=== PATIENT | male | born 1970 | race Caucasian/White ===

== ENCOUNTER 2019-02-06 22:35 | Emergency (ER) | payer OTHER, MEDICARE, MEDICAID ==
[2019-02-06 23:04] VITALS: BP 143/89; PULSE 126
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
== END 2019-02-07 00:57 | disposition home or self-care (01) ==
LOC: JD.ED 22:35
DX: I10 Essential (primary) hypertension (principal); F32.9 Major depressive disorder, single episode, unspecified; Z79.899 Other long term (current) drug therapy; V53.5XXA Driver of pick-up truck or van injured in collision with car, pick-up truck or van in traffic accident, initial encounter
CPT/HCPCS: 99283

== ENCOUNTER 2019-06-29 18:09 | Emergency (ER) | payer MEDICAID ==
[2019-06-29 18:35] VITALS: BP 175/116; PULSE 103
--- NOTE | 2019-06-29 19:31 | EDM.PDOC ---
<Dianne Lewis - Last Filed: 06/29/19 19:26> ED HPI GENERAL MEDICAL PROBLEM - General Chief Complaint: Cardiovascular Problem Stated Complaint: SWOLLEN ANKLES,LEGS AND FEET Time Seen by Provider: 06/29/19 18:59 Source of Information: Reports: Patient, Family (Mother), Significant Other History Limitations: Reports: No Limitations - History of Present Illness INITIAL COMMENTS - FREE TEXT/NARRATIVE: Patient is a pleasant 48-year-old gentleman with a history of hypertension, hyperlipidemia, and depression presents to the ED this evening for evaluation of bilateral swollen feet. Patient states he noticed his feet were swollen this morning when he was getting out of the shower. He does not know if his feet were swollen before this morning, as he states he does not typically pay attention. He denies having any previous episode of lower leg/feet edema. He denies any pain, numbness, tingling, or burning sensation in the feet with rest and ambulation. He does not think he was on his feet more than normal the past few days. His mother states he lives a pretty sedentary lifestyle since he does not work, he doesn't get up or out of the house very much. He has not changed his diet or increased his salt intake recently. He reports he drinks about half to a full gallon of plain water each day. He states he had a cardiac workup in the past six months at [facility] in [place]. He denies chest pain, shortness of breath, and recent illness. Onset: Today Duration: Hour(s): Location: Reports: Lower Extremity, Left, Lower Extremity, Right Quality: Reports: Other (swelling) - Related Data Allergies Allergy/AdvReac Type Severity Reaction Status Date / Time No Known Allergies Allergy Verified 06/29/19 18:35 Home Meds: Home Meds Aspirin 81 mg PO DAILY 06/29/19 [History] Chlorthalidone 25 mg PO DAILY #30 tab 06/29/19 [Rx] Sertraline [Zoloft] 100 mg PO DAILY 06/29/19 [History] atorvaSTATin Calcium [Lipitor] 20 mg PO DAILY 06/29/19 [History] lisinopriL [Lisinopril] 2.5 mg pe PO BID 06/29/19 [History] Past Medical History Cardiovascular History: Reports: Heart Murmur, High Cholesterol, Hypertension Respiratory History: Reports: Bronchitis, Recurrent Neurological History: Reports: Concussion, Migraines Psychiatric History: Reports: Depression Dermatologic History: Reports: Psoriasis - Infectious Disease History Infectious Disease History: Reports: Chicken Pox - Past Surgical History Head Surgeries/Procedures: Reports: None ED ROS GENERAL - Review of Systems Review Of Systems: See Below Constitutional: Reports: No Symptoms. Denies: Fever, Chills Respiratory: Reports: No Symptoms. Denies: Shortness of Breath Cardiovascular: Reports: Edema (bilateral feet). Denies: Chest Pain, Lightheadedness, Syncope GI/Abdominal: Reports: No Symptoms. Denies: Abdominal Pain, Diarrhea, Nausea, Vomiting Musculoskeletal: Reports: No Symptoms. Denies: Neck Pain, Back Pain, Muscle Pain Skin: Reports: No Symptoms. Denies: Rash, Erythema Neurological: Reports: No Symptoms. Denies: Dizziness, Headache, Numbness, Tingling Psychiatric: Reports: No Symptoms ED EXAM, GENERAL - Physical Exam Exam: See Below Exam Limited By: No Limitations General Appearance: Alert, WD/WN, No Apparent Distress Respiratory/Chest: No Respiratory Distress, Lungs Clear, Normal Breath Sounds, Chest Non-Tender Cardiovascular: Normal Peripheral Pulses, No Murmur, Tachycardia GI/Abdominal: Normal Bowel Sounds, Soft, Non-Tender, No Organomegaly, No Distention, No Mass Back Exam: Normal Inspection, Full Range of Motion, NT Extremities: Normal Inspection, Normal Range of Motion, Non-Tender, Normal Capillary Refill, Pedal Edema (bilateral- right is 1+ pitting and left is mild edema without pitting) Neurological: Alert, Oriented, Normal Cognition, No Motor/Sensory Deficits Psychiatric: Normal Affect, Normal Mood Skin Exam: Warm, Dry, Intact, Normal Color, No Rash Course - Vital Signs Last Recorded V/S: Last Vital Signs Temp 97.0 F 06/29/19 18:32 Pulse 103 H 06/29/19 18:32 Resp 16 06/29/19 18:32 BP 175/116 H 06/29/19 18:32 Pulse Ox 96 06/29/19 18:32 - Orders/Labs/Meds Orders: Active Orders 24 hr Category Date Time Status EKG Documentation Completion [RC] STAT Care 06/29/19 19:32 Ordered Chest 2V [CR] Stat Exams 06/29/19 19:32 Ordered Labs: Laboratory Tests 06/29/19 06/29/19 06/29/19 Range/Units 19:52 19:52 19:52 WBC 9.29 H (4.23-9.07) K/mm3 RBC 5.64 (4.63-6.08) M/mm3 Hgb 16.3 (13.7-17.5) gm/dl Hct 48.5 (40.1-51.0) % MCV 86.0 (79.0-92.2) fl MCH 28.9 (25.7-32.2) pg MCHC 33.6 (32.2-35.5) g/dl RDW Std Deviation 41.4 (35.1-43.9) fL Plt Count 261 (163-337) K/mm3 MPV 9.6 (9.4-12.3) fl Neutrophils % (Manual) 66 H (40-60) % Band Neutrophils % 1 (0-10) % Lymphocytes % (Manual) 24 (20-40) % Atypical Lymphs % 0 % Monocytes % (Manual) 6 (2-10) % Eosinophils % (Manual) 2 (0.8-7.0) % Basophils % (Manual) 1 (0.2-1.2) Platelet Estimate Adequate RBC Morph Comment Normal Sodium 143 (136-145) mEq/L Potassium 3.7 (3.5-5.1) mEq/L Chloride 103 (98-107) mEq/L Carbon Dioxide 31 (21-32) mEq/L Anion Gap 12.7 (5-15) BUN 12 (7-18) mg/dL Creatinine 1.0 (0.7-1.3) mg/dL Est Cr Clr Drug Dosing TNP Estimated GFR (MDRD) > 60 (>60) mL/min BUN/Creatinine Ratio 12.0 L (14-18) Glucose 112 H (74-106) mg/dL Calcium 8.9 (8.5-10.1) mg/dL Total Bilirubin 0.4 (0.2-1.0) mg/dL AST 66 H (15-37) U/L ALT 121 H (16-63) U/L Alkaline Phosphatase 63 (46-116) U/L Troponin I < 0.017 (0.00-0.056) ng/mL NT-Pro-B Natriuret Pep 166 H (0-125) pg/mL Total Protein 7.5 (6.4-8.2) g/dl Albumin 3.9 (3.4-5.0) g/dl Globulin 3.6 gm/dL Albumin/Globulin Ratio 1.1 (1-2) Departure - Departure Disposition: Home, Self-Care 01 Clinical Impression: Mild peripheral edema Prescriptions: Chlorthalidone 25 mg PO DAILY #30 tab Instructions: Edema, [id number] Referrals: Anuja Long PA-C [Primary Care Provider] - Forms: ED Department Discharge Additional Instructions: You were evaluated in the ER today regarding the swelling in your bilateral legs. Your laboratory evaluation did not uncover any sort of remarkable defects. EKG was also within normal limits, and your chest x-ray was also within normal limits. You will be started on a medicine called chlorthalidone, please take as prescribed. This was electronic prescribed to the [facility] [email or web address]. You will have to pick this up tomorrow and start taking as directed. You were given a 30-day supply of this. Recommend you call your primary care provider, Anuja Long, and try to get your appointment pushed up for an ER follow-up regarding your blood pressure medications. Please return to the ER at any time if your symptoms change or worsen. Sepsis Event Note - Evaluation Sepsis Screening Result: No Definite Risk - Focused Exam Vital Signs: Vital Signs Temp Pulse Resp BP Pulse Ox 06/29/19 18:32 97.0 F 103 H 16 175/116 H 96 Date Exam was Performed: 06/29/19 Time Exam was Performed: 19:26 - My Orders Last 24 Hours: My Active Orders 06/29/19 19:32 EKG Documentation Completion [RC] STAT Chest 2V [CR] Stat - Assessment/Plan Last 24 Hours: My Active Orders 06/29/19 19:32 EKG Documentation Completion [RC] STAT Chest 2V [CR] Stat <Elizabeth Lux - Last Filed: 06/29/19 20:45> EKG INTERPRETATION EKG Date: 06/29/19 Time: 19:44 Rhythm: NSR Rate (Beats/Min): 94 [place]: Normal P-Wave: Present QRS: Normal ST-T: Normal (Diffuse early repolarization) QT: Normal Comparison: NA - No Prior EKG EKG Interpretation Comments: EKG shows no discernible signs of acute ischemia. Reviewed by myself and Dr. Gonzalez. Course - Orders/Labs/Meds Labs: Laboratory Tests 06/29/19 06/29/19 06/29/19 Range/Units 19:52 19:52 19:52 WBC 9.29 H (4.23-9.07) K/mm3 RBC 5.64 (4.63-6.08) M/mm3 Hgb 16.3 (13.7-17.5) gm/dl Hct 48.5 (40.1-51.0) % MCV 86.0 (79.0-92.2) fl MCH 28.9 (25.7-32.2) pg MCHC 33.6 (32.2-35.5) g/dl RDW Std Deviation 41.4 (35.1-43.9) fL Plt Count 261 (163-337) K/mm3 MPV 9.6 (9.4-12.3) fl Neutrophils % (Manual) 66 H (40-60) % Band Neutrophils % 1 (0-10) % Lymphocytes % (Manual) 24 (20-40) % Atypical Lymphs % 0 % Monocytes % (Manual) 6 (2-10) % Eosinophils % (Manual) 2 (0.8-7.0) % Basophils % (Manual) 1 (0.2-1.2) Platelet Estimate Adequate RBC Morph Comment Normal Sodium 143 (136-145) mEq/L Potassium 3.7 (3.5-5.1) mEq/L Chloride 103 (98-107) mEq/L Carbon Dioxide 31 (21-32) mEq/L Anion Gap 12.7 (5-15) BUN 12 (7-18) mg/dL Creatinine 1.0 (0.7-1.3) mg/dL Est Cr Clr Drug Dosing TNP Estimated GFR (MDRD) > 60 (>60) mL/min BUN/Creatinine Ratio 12.0 L (14-18) Glucose 112 H (74-106) mg/dL Calcium 8.9 (8.5-10.1) mg/dL Total Bilirubin 0.4 (0.2-1.0) mg/dL AST 66 H (15-37) U/L ALT 121 H (16-63) U/L Alkaline Phosphatase 63 (46-116) U/L Troponin I < 0.017 (0.00-0.056) ng/mL NT-Pro-B Natriuret Pep 166 H (0-125) pg/mL Total Protein 7.5 (6.4-8.2) g/dl Albumin 3.9 (3.4-5.0) g/dl Globulin 3.6 gm/dL Albumin/Globulin Ratio 1.1 (1-2) - Re-Assessments/Exams Free Text/Narrative Re-Assessment/Exam: 06/29/19 20:10 I have read and reviewed the student's HPI and examined the patient and agree with Miguel Lewis NP student. 06/29/19 20:42 Laboratory evaluation is back, everything is pretty unremarkable. I will discharge the patient home with a chlorthalidone prescription, and have him increase his lisinopril from 2.5 mg BID to 5mg BID, and have him follow-up with his regular provider a little sooner than he is already scheduled on July 19. Departure - Departure Time of Disposition: 20:43 Condition: Fair Sepsis Event Note - Focused Exam Date Exam was Performed: 06/29/19 Time Exam was Performed: 20:42
--- NOTE | 2019-06-30 09:56 | CR ---
Chest: PA and lateral views of the chest were obtained. Comparison: No previous chest x-ray. Heart size and mediastinum are normal. Lungs are clear with no acute parenchymal change. Bony structures appear within normal limits for the patient's age. Impression: 1. Nothing acute is seen on two-view chest x-ray. Diagnostic code #1 Study was dictated in [place] Standard Time
== END 2019-06-29 21:00 | disposition home or self-care (01) ==
LOC: JD.ED 18:09 → MERGE 18:09 → JD.ED 21:00
DX: R60.0 Localized edema (principal); I10 Essential (primary) hypertension; E78.00 Pure hypercholesterolemia, unspecified; F32.9 Major depressive disorder, single episode, unspecified; Z79.82 Long term (current) use of aspirin; Z79.899 Other long term (current) drug therapy
CPT/HCPCS: 36415; 71046; 71046-26; 80053; 83880; 84484; 85007; 85027; 93005; 93010; 99283; 99284-25

== ENCOUNTER 2020-02-26 20:10 | Emergency (ER) | payer MEDICARE, MEDICAID ==
[2020-02-26 20:19] VITALS: BP 173/109; PULSE 105
[2020-02-26] MEDS ORDERED: Sodium Chloride 0.9% 10 ML Syringe FLUSH PRN (20:26)
[2020-02-26] MEDS ORDERED: Ondansetron 4 MG/2 ML SDV IVPUSH ONE (20:26)
--- NOTE | 2020-02-26 20:33 | EDM.PDOC ---
ED HPI GENERAL MEDICAL PROBLEM - General Chief Complaint: General Stated Complaint: [facility] Time Seen by Provider: 02/26/20 20:18 Source of Information: Reports: Patient History Limitations: Reports: No Limitations - History of Present Illness INITIAL COMMENTS - FREE TEXT/NARRATIVE: The patient presents by EMS for headache, nausea and vomiting. He had a brain tumor removed with shunt placement on 01/15/20. He was released from [facility] in [place] on 02/22/20. He has been having headaches, nausea and vomiting. He also had a temp of 101.4. He had a temp of 99.1 here. He has no headache now and he feels better. He has no cough, congestion, runny nose, chest pain, shortness of breath, or abdominal pain. He has no new neurologic symptoms like numbness or weakness. Onset: Gradual Duration: Day(s): Location: Reports: Head Quality: Reports: Ache Severity: Moderate (Better now) Improves with: Reports: None Worsens with: Reports: None Associated Symptoms: Reports: Fever/Chills, Headaches, Nausea/Vomiting. Denies: Chest Pain, Cough, Shortness of Breath Headache Pain Score (Numeric/FACES): 6 - Related Data Allergies Allergy/AdvReac Type Severity Reaction Status Date / Time No Known Allergies Allergy Verified 02/26/20 20:19 Home Meds: Home Meds Metoprolol Tartrate [Lopressor] 50 mg PO BID 03/15/16 [History] Sertraline. 03/15/16 [History] Aspirin 81 mg PO DAILY 06/29/19 [History] Chlorthalidone 25 mg PO DAILY #30 tab 06/29/19 [Rx] Sertraline [Zoloft] 100 mg PO DAILY 06/29/19 [History] atorvaSTATin Calcium [Lipitor] 20 mg PO DAILY 06/29/19 [History] lisinopriL [Lisinopril] 2.5 mg pe PO BID 06/29/19 [History] Past Medical History - Past Health History Medical/Surgical History: Denies Medical/Surgical History Cardiovascular History: Reports: High Cholesterol, Heart Murmur, Hypertension Respiratory History: Reports: Bronchitis, Recurrent Genitourinary History: Reports: Urinary Incontinence Neurological History: Reports: Concussion, Migraines, Other (See Below) Other Neuro History: brain tumor Psychiatric History: Reports: Depression Endocrine/Metabolic History: Reports: Obesity/BMI 30+ Dermatologic History: Reports: Psoriasis - Infectious Disease History Infectious Disease History: Reports: Chicken Pox - Past Surgical History HEENT Surgical History: Reports: Oral Surgery Neurological Surgical History: Reports: Other (See Below) Other Neurological Surgeries/Procedures: brain tumor removed and shunt placed 02/15/2020 Social & Family History - Family History Family Medical History: Noncontributory - Tobacco Use Smoking Status *Q: Never Smoker Second Hand Smoke Exposure: No - Caffeine Use Caffeine Use: Reports: None - Recreational Drug Use Recreational Drug Use: No - Living Situation & Occupation Living situation: Reports: (), with Significant Other (Girlfriend) Occupation: Unemployed ED ROS GENERAL - Review of Systems Review Of Systems: See Below Constitutional: Reports: Fever HEENT: Reports: No Symptoms Respiratory: Reports: No Symptoms Cardiovascular: Reports: No Symptoms Endocrine: Reports: No Symptoms GI/Abdominal: Reports: Nausea, Vomiting. Denies: Abdominal Pain : Reports: No Symptoms ED EXAM, GENERAL - Physical Exam Exam: See Below Exam Limited By: No Limitations General Appearance: Alert, No Apparent Distress Ears: Normal External Exam Nose: Normal Inspection Head: Other (Surgical incisions with sutures to the right temporal region and left parietal regions. No erythema, edema or drainage noted.) Neck: Normal Inspection Respiratory/Chest: No Respiratory Distress, Lungs Clear, Normal Breath Sounds Cardiovascular: Regular Rate, Rhythm, No Edema, No Murmur GI/Abdominal: Soft, Non-Tender, No Organomegaly, No Mass Back Exam: Normal Inspection Extremities: Normal Inspection Neurological: Alert, Oriented, No Motor/Sensory Deficits Course - Vital Signs Last Recorded V/S: Last Vital Signs Temp 99.4 F 02/26/20 20:15 Pulse 105 H 02/26/20 20:15 Resp 19 02/26/20 20:15 BP 173/109 H 02/26/20 20:15 Pulse Ox 93 L 02/26/20 20:15 - Orders/Labs/Meds Orders: Active Orders 24 hr Category Date Time Status Cardiac Monitoring [RC] . DIRECTED Care 02/26/20 20:26 Active Peripheral IV Care [RC] . DIRECTED Care 02/26/20 20:27 Active CXR [Chest 1V Frontal] [CR] Stat Exams 02/26/20 22:47 Ordered Head wo Cont [CT] Stat Exams 02/26/20 20:27 Taken CULTURE BLOOD [BC] Stat Lab 02/26/20 20:45 Received CULTURE BLOOD [BC] Stat Lab 02/26/20 21:00 Received Sodium Chloride 0.9% [Saline Flush] Med 02/26/20 20:26 Active 10 ml FLUSH ASDIRECTED PRN Blood Culture x2 Reflex Set [OM.PC] Stat Oth 02/26/20 20:28 Ordered ED Antiemetic Medication Reflex [OM.PC] Stat Oth 02/26/20 20:26 Ordered Peripheral IV Insertion Adult [OM.PC] Stat Oth 02/26/20 20:26 Ordered Medication Orders Sodium Chloride (Saline Flush) 10 ml FLUSH ASDIRECTED PRN PRN Reason: Keep Vein Open Last Admin: 02/26/20 20:35 Dose: 10 ml Documented by: SHARYN Labs: Laboratory Tests 02/26/20 02/26/20 02/26/20 Range/Units 20:45 20:45 20:45 WBC 12.11 H (4.23-9.07) K/mm3 RBC 4.89 (4.63-6.08) M/mm3 Hgb 14.1 D (13.7-17.5) gm/dl Hct 43.1 (40.1-51.0) % MCV 88.1 (79.0-92.2) fl MCH 28.8 (25.7-32.2) pg MCHC 32.7 (32.2-35.5) g/dl RDW Std Deviation 43.7 (35.1-43.9) fL Plt Count 314 (163-337) K/mm3 MPV 9.9 (9.4-12.3) fl Neut % (Auto) 81.3 H (34.0-67.9) % Lymph % (Auto) 9.2 L (21.8-53.1) % Hubbard % (Auto) 9.1 (5.3-12.2) % Eos % (Auto) 0 L (0.8-7.0) Baso % (Auto) 0.2 (0.1-1.2) % Neut # (Auto) 9.85 H (1.78-5.38) K/mm3 Lymph # (Auto) 1.11 L (1.32-3.57) K/mm3 Hubbard # (Auto) 1.10 H (0.30-0.82) K/mm3 Eos # (Auto) 0.00 L (0.04-0.54) K/mm3 Baso # (Auto) 0.02 (0.01-0.08) K/mm3 Manual Slide Review Abnormal smear Sodium 137 (136-145) mEq/L Potassium 4.0 (3.5-5.1) mEq/L Chloride 100 (98-107) mEq/L Carbon Dioxide 30 (21-32) mEq/L Anion Gap 11.0 (5-15) BUN 8 (7-18) mg/dL Creatinine 1.0 (0.7-1.3) mg/dL Est Cr Clr Drug Dosing 92.26 mL/min Estimated GFR (MDRD) > 60 (>60) mL/min BUN/Creatinine Ratio 8.0 L (14-18) Glucose 129 H (74-106) mg/dL Lactic Acid 1.2 (0.4-2.0) mmol/L Calcium 9.1 (8.5-10.1) mg/dL Total Bilirubin 0.7 (0.2-1.0) mg/dL AST 12 L (15-37) U/L ALT 19 (16-63) U/L Alkaline Phosphatase 73 (46-116) U/L C-Reactive Protein 10.1 H* (<1.0) mg/dL Total Protein 7.2 (6.4-8.2) g/dl Albumin 3.4 (3.4-5.0) g/dl Globulin 3.8 gm/dL Albumin/Globulin Ratio 0.9 L (1-2) Urine Color (Yellow) Urine Appearance (Clear) Urine pH (5.0-8.0) Ur Specific Antler (1.005-1.030) Urine Protein (Negative) Urine Glucose (UA) (Negative) Urine Ketones (Negative) Urine Occult Blood (Negative) Urine Nitrite (Negative) Urine Bilirubin (Negative) Urine Urobilinogen (0.2-1.0) Ur Leukocyte Esterase (Negative) Urine RBC (0-5) /hpf Urine WBC (0-5) /hpf Ur Squamous Epith Cells (0-5) /hpf Urine Bacteria (FEW) /hpf Urine Mucus (FEW) /hpf SARS-CoV-2 RNA (BEHZAD) (NEGATIVE) 02/26/20 02/26/20 Range/Units 21:08 21:25 WBC (4.23-9.07) K/mm3 RBC (4.63-6.08) M/mm3 Hgb (13.7-17.5) gm/dl Hct (40.1-51.0) % MCV (79.0-92.2) fl MCH (25.7-32.2) pg MCHC (32.2-35.5) g/dl RDW Std Deviation (35.1-43.9) fL Plt Count (163-337) K/mm3 MPV (9.4-12.3) fl Neut % (Auto) (34.0-67.9) % Lymph % (Auto) (21.8-53.1) % Hubbard % (Auto) (5.3-12.2) % Eos % (Auto) (0.8-7.0) Baso % (Auto) (0.1-1.2) % Neut # (Auto) (1.78-5.38) K/mm3 Lymph # (Auto) (1.32-3.57) K/mm3 Hubbard # (Auto) (0.30-0.82) K/mm3 Eos # (Auto) (0.04-0.54) K/mm3 Baso # (Auto) (0.01-0.08) K/mm3 Manual Slide Review Sodium (136-145) mEq/L Potassium (3.5-5.1) mEq/L Chloride (98-107) mEq/L Carbon Dioxide (21-32) mEq/L Anion Gap (5-15) BUN (7-18) mg/dL Creatinine (0.7-1.3) mg/dL Est Cr Clr Drug Dosing mL/min Estimated GFR (MDRD) (>60) mL/min BUN/Creatinine Ratio (14-18) Glucose (74-106) mg/dL Lactic Acid (0.4-2.0) mmol/L Calcium (8.5-10.1) mg/dL Total Bilirubin (0.2-1.0) mg/dL AST (15-37) U/L ALT (16-63) U/L Alkaline Phosphatase (46-116) U/L C-Reactive Protein (<1.0) mg/dL Total Protein (6.4-8.2) g/dl Albumin (3.4-5.0) g/dl Globulin gm/dL Albumin/Globulin Ratio (1-2) Urine Color Yellow (Yellow) Urine Appearance Clear (Clear) Urine pH 8.0 (5.0-8.0) Ur Specific Antler 1.020 (1.005-1.030) Urine Protein 1+ H (Negative) Urine Glucose (UA) Negative (Negative) Urine Ketones Negative (Negative) Urine Occult Blood Trace-intact H (Negative) Urine Nitrite Negative (Negative) Urine Bilirubin Negative (Negative) Urine Urobilinogen 1.0 (0.2-1.0) Ur Leukocyte Esterase Negative (Negative) Urine RBC 0-5 (0-5) /hpf Urine WBC 0-5 (0-5) /hpf Ur Squamous Epith Cells 0-5 (0-5) /hpf Urine Bacteria Not seen (FEW) /hpf Urine Mucus Few (FEW) /hpf SARS-CoV-2 RNA (BEHZAD) Negative (NEGATIVE) Meds: Medications Generic Name Dose Route Start Last Admin Trade Name Freq PRN Reason Stop Dose Admin Sodium Chloride 10 ml 02/26/20 20:26 02/26/20 20:35 Saline Flush FLUSH 10 ml ASDIRECTED PRN Administration Keep Vein Open Discontinued Medications Generic Name Dose Route Start Last Admin Trade Name Freq PRN Reason Stop Dose Admin Ceftriaxone Sodium 2 gm/ 100 mls @ 200 mls/hr 02/26/20 21:49 02/26/20 21:57 Sodium Chloride IV 02/26/20 22:18 200 mls/hr ONETIME ONE Administration Ondansetron HCl 4 mg 02/26/20 20:26 02/26/20 20:35 Zofran IVPUSH 02/26/20 20:27 4 mg ONETIME ONE Administration - Re-Assessments/Exams Free Text/Narrative Re-Assessment/Exam: 02/26/20 20:34 I ordered an IV saline lock, zofran 4mg IV, labs, blood cultures, lactic acid, COVID [address] of his head. 02/26/20 23:00 His WBC was elevated at 12.11. His CRP is elevated at 10.1. His UA shows no UTI. His COVID [address] shows craniotomy defect in the right mastoid region with underlying mastoidectmoy and resection of the posterior right temporal bone structures. In the rightward cerebellum there is a masslike rounded focus in the region of the brachium pontis measuring to 3.4cm in size with local mass effect. The mass effect is typical for the resection bed and raises concern for either residual/recurrent neoplasm, or possibly brain abscess. Recommend further assessment with pre and post contrast MRI of the brain. Comparison to prior study would be helpful if any can be mad available. There is partial effacement of the 4th ventricle which does not appear obstructed. Nondilated ventricular system. Left frontal ventriculostomy catheter in place with its tip in the frontal horn of the right lateral ventricle. No hemorrhage or signs of malfunction. There is local stranding and fluid around the port in the left parietal region. Surgery is reportedly over a month ago and although this might relate to some persistent postoperative changes and fluid or possibly recent port access, cannot exclude the possibility of infection clinical correlation recommended. No intracranial hemorrhage. After the blood cultures I did order rocephin 2 grams IV. I called [facility] in [place] and talked with Dr Denny the neurosurgeon cash applications representative and Dr Pollack the neurologist cash applications representative and they accepted the patient. He will be flying. Departure - Departure Time of Disposition: 23:10 Disposition: Home, Self-Care 01 Condition: Good Clinical Impression: Status post brain surgery Headache Qualifiers: Headache type: other headache syndrome Qualified Code(s): G44.89 - Other headache syndrome Nausea & vomiting Qualifiers: Vomiting type: unspecified Vomiting Intractability: non-intractable Qualified Code(s): R11.2 - Nausea with vomiting, unspecified - Discharge Information Referrals: Anuja Long PA-C [Primary Care Provider] - Forms: ED Department Discharge Sepsis Event Note (ED) - Evaluation Sepsis Screening Result: Possible Sepsis Risk - Focused Exam Vital Signs: Vital Signs Temp Pulse Resp BP Pulse Ox 02/26/20 20:15 99.4 F 105 H 19 173/109 H 93 L - My Orders Last 24 Hours: My Active Orders 02/26/20 20:26 Cardiac Monitoring [RC] . DIRECTED Sodium Chloride 0.9% [Saline Flush] 10 ml FLUSH ASDIRECTED PRN ED Antiemetic Medication Reflex [OM.PC] Stat Peripheral IV Insertion Adult [OM.PC] Stat 02/26/20 20:27 Peripheral IV Care [RC] . DIRECTED Head wo Cont [CT] Stat 02/26/20 20:28 Blood Culture x2 Reflex Set [OM.PC] Stat 02/26/20 20:45 CULTURE BLOOD [BC] Stat 02/26/20 21:00 CULTURE BLOOD [BC] Stat 02/26/20 22:47 CXR [Chest 1V Frontal] [CR] Stat - Assessment/Plan Last 24 Hours: My Active Orders 02/26/20 20:26 Cardiac Monitoring [RC] . DIRECTED Sodium Chloride 0.9% [Saline Flush] 10 ml FLUSH ASDIRECTED PRN ED Antiemetic Medication Reflex [OM.PC] Stat Peripheral IV Insertion Adult [OM.PC] Stat 02/26/20 20:27 Peripheral IV Care [RC] . DIRECTED Head wo Cont [CT] Stat 02/26/20 20:28 Blood Culture x2 Reflex Set [OM.PC] Stat 02/26/20 20:45 CULTURE BLOOD [BC] Stat 02/26/20 21:00 CULTURE BLOOD [BC] Stat 02/26/20 22:47 CXR [Chest 1V Frontal] [CR] Stat
[2020-02-26] MEDS ORDERED: cefTRIAXone 2 GM in Sodium Chloride 0.9% 100 ML IV ONE (21:49)
--- NOTE | 2020-03-21 13:57 | CR ---
PROCEDURE INFORMATION: Exam: XR Chest, 1 View Exam date and time: 02/26/2020 10:48 PM Age: 49 years old Clinical indication: Fever; Additional info: Prior imaging performed at [facility], no prior exams available for comparison, no prior reports available TECHNIQUE: Imaging protocol: XR of the chest Views: 1 view. COMPARISON: DX Chest 2V 06/29/2019 7:57 PM FINDINGS: Tubes, catheters and devices: [employer] shunt catheter tubing extending from the lower left neck soft tissues and leftward mediastinum into the left upper abdominal region off the edges of the field of view. No gross tubing breakage or kink. Lungs: Normal pulmonary expansion. Pulmonary vasculature grossly normal. No infiltrates. Pleural space: No pleural effusion. No pneumothorax. Heart/Mediastinum: Heart size normal. No tracheal/mediastinal shift. Bones/joints: No acute osseous abnormalities are identified. Other findings: The exam was performed on 02/26/2020 but presented for final interpretation today. IMPRESSION: No acute thoracic process. Thank you for allowing us to participate in the care of your patient. Dictated and Authenticated by: Rich Lucio MD 03/20/2020 6:18 PM Central Time ([place] & [place]) REMY
--- NOTE | 2020-03-21 13:57 | CT ---
"PROCEDURE INFORMATION: Exam: CT Head Without Contrast Exam date and time: 02/26/2020 8:29 PM Age: 49 years old Clinical indication: Condition or disease; Brain tumor and headache; Other: Post op tumor removal; Neoplasm of brain, not specified; Prior surgery; Surgery date: 1-6 months; Additional info: Prior imaging performed at , no prior exams available for comparison, no prior reports available TECHNIQUE: Imaging protocol: Computed tomography of the head without contrast. COMPARISON: No relevant prior studies available. FINDINGS: Tubes, catheters and devices: There is a ventriculostomy catheter in place with its tip in the frontal horn distribution of the right lateral ventricle. No hemorrhage. Brain: Prominence of the posterior CSF spaces in the posterior fossa with partial septation near the midline suggesting there may be an underlying jacob cisterna magna configuration present. There is however some patchy hyperdensity in the CSF in the posterior midline region on series 2, images 17- 22 which could represent blood products, measuring 30 Hounsfield units in density. This raises concern for subdural hematoma in the leftward posterior fossa measuring up to 10 mm in thickness. No evidence of acute intracranial hemorrhage. Whittaker-white differentiation is well maintained. No CT evidence of large territory acute or subacute intracranial ischemia/infarct. No midline shift or herniation. Cerebral ventricles: Nondilated ventricles. Bones/joints: Craniotomy in the right mastoid distribution with overlying coverage plate demonstrating no gross hardware complication. Operative fat packing in the right mastoid distribution noted. No signs of acute hematoma or abscess development in this region. Paranasal sinuses: Visualized paranasal sinuses are clear. There is a 3.4 x 3.2 by 3.2 cm rounded masslike focus in the rightward cerebellum at the level of the brachium pontis on series 2, image 15. This causes moderate local mass effect with partial effacement of the rightward half of the 4th MAYELIN CHINCHILLA | Final Radiology Report CONFIDENTIALITY STATEMENT This report is intended only for use by the referring physician, and only in accordance with law. If you received this in error, call [phone]. Page 2 of 2 ventricle. Question mild surrounding parenchymal edema. This is nonspecific in nature. Given the history of recent prior surgery, this could represent either residual/recurrent mass, or potentially could represent abscess development. Consider pre and postcontrast MRI assessment as clinically indicated. Mastoid air cells: The left IAC is unremarkable. The right IAC posterior wall is resected along with the right-sided mastoid air cells and posterior portions of the right inner ear structures. Left-sided mastoid air cells are clear. Orbital cavity: Visualized orbital contents demonstrate no evidence of acute abnormality. Vasculature: The visualized major intracranial arterial segments demonstrate no gross abnormality by noncontrast CT. No asymmetric vascular hyperdensities suggestive of thrombosis are identified. There are small foci of fat in the right cerebellopontine angle and tracking along the undersurface of the right tentorium, probably representing some fatty elements related to operative fat packing. Soft tissues: There is scalp soft tissue swelling in the left parietal region around the port for the [employer] shunt catheter on series 2 images 29-44. This may relate to recent placement with residual postoperative changes and small amount of postoperative fluid, or possibly recent access with related local fluid accumulation, although the clinical history suggests that surgery was over 1 month ago. Infection could produce this appearance, clinical evaluation recommended. CT with IV contrast may be helpful to assess for peripheral enhancement. No tubing breakage or obstructive kink is identified. Other findings: The sella is grossly normal. The exam was performed on 02/26/2020 but presented for final interpretation today. IMPRESSION: 1. Craniotomy defect in the right mastoid region with underlying mastoidectomy and resection of the posterior right temporal bone structures. 2. In the rightward cerebellum there is a masslike rounded focus in the region of the brachium pontis measuring up to 3.4 cm in size with local mass effect. The mass effect is atypical for the resection bed and raises concern for either residual/recurrent neoplasm, or possibly brain abscess. Recommend further assessment with pre and postcontrast MRI of the brain. Comparison to prior studies would be helpful if any can be made available. 3. There is partial effacement of the 4th ventricle which does not appear obstructed. Nondilated ventricular system. 4. Left frontal ventriculostomy catheter in place with its tip in the frontal horn of the right lateral ventricle. No hemorrhage or signs of malfunction. 5. There is local stranding and fluid around the port in the left parietal region. Surgery is reportedly over a month ago and although this might relate to some persistent residual postoperative changes and fluid, or possibly recent port access, cannot exclude the possibility of infection, clinical correlation recommended. 6. No intracranial hemorrhage. Thank you for allowing us to participate in the care of your patient. Dictated and Authenticated by: Rich Lucio MD 03/20/2020 6:17 PM Central Time ([place] & [place]) REMY"
== END 2020-02-26 23:45 | disposition home or self-care (01) ==
LOC: JD.ED 20:10
DX: G44.89 Other headache syndrome (principal); R11.2 Nausea with vomiting, unspecified; E78.00 Pure hypercholesterolemia, unspecified; I10 Essential (primary) hypertension; F32.9 Major depressive disorder, single episode, unspecified; E66.9 Obesity, unspecified; Z68.35 Body mass index [BMI] 35.0-35.9, adult; Z20.828 Contact with and (suspected) exposure to other viral communicable diseases; Z98.890 Other specified postprocedural states
CPT/HCPCS: 36415; 70450; 71045; 80053; 81001; 83605; 85025; 86140; 87040; 96365; 96375; 99285; J0696; J2405; J7050; U0002; 99284

== ENCOUNTER 2025-02-16 22:09 | Emergency (ER) | payer MEDICARE, MEDICAID ==
[2025-02-16 23:02] LABS: BASOPHILS ABSOLUTE AUTO 0.1 K/mm3 (0.0-0.2); BASOPHILS PERCENT AUTO 0.7 % (0.0-1.0); EOSINOPHILS ABSOLUTE AUTO 0.1 K/mm3 (0.0-0.4); EOSINOPHILS PERCENT AUTO 0.8 % (0.0-6.0); IMMATURE GRAN ABSOLUTE AUTO 0.03 K/mm3 (0.00-0.05); IMMATURE GRAN PERCENT AUTO 0.3 % (0.0-0.4); LYMPHOCYTES ABSOLUTE AUTO 1.5 K/mm3 (1.0-4.8); LYMPHOCYTES PERCENT AUTO 17.0 % (24.0-44.0); MEAN PLATELET VOLUME 9.6 fl (9.4-12.4); MONOCYTES ABSOLUTE AUTO 0.9 K/mm3 (0.0-0.8); MONOCYTES PERCENT AUTO 10.5 % (0.0-8.0); NEUTROPHILS ABSOLUTE AUTO 6.3 K/mm3 (1.8-7.7); NEUTROPHILS PERCENT AUTO 70.7 % (41.0-71.0); NRBC ABSOLUTE 0.00 (0.00-0.02); NRBC PERCENT 0.0 % (0.0-0.2); PLATELET COUNT,PLT 263 K/mm3 (150-400); RED BLOOD CELL COUNT 5.92 M/mm3 (4.52-5.90); WHITE BLOOD CELL COUNT,WBC 8.88 K/mm3 (3.9-11.3)
[2025-02-16] MEDS: Iopamidol 612 MG/ML 100 ML Bottle IVPUSH ONE (23:07)
[2025-02-16] MEDS: Ondansetron 4 MG/2 ML SDV IVPUSH ONE (23:10)
[2025-02-16] MEDS: Sodium Chloride 0.9% 10 ML Syringe FLUSH PRN (23:16)
[2025-02-16 23:23] LABS: A/G RATIO 0.9 (1-2); ALANINE AMINOTRANSFERASE,ALT 28.0 U/L (16-63); ASPARTATE AMNIOTRANSFERASE,AST 15.0 U/L (15-37); BILIRUBIN TOTAL 0.8 mg/dL (0.2-1.0); BLOOD UREA NITROGEN,BUN 16.0 mg/dL (7-18); CARBON DIOXIDE,CO2 31.0 mEq/L (21-32); CHLORIDE,CL 106.0 mEq/L (98-107); CREATININE 1.1 mg/dL (0.7-1.3); EST CRCL DRUG DOSING (CG) 79.27 mL/min; ESTIMATED GFR 80.0 mL/min (>60); GLUCOSE RANDOM 109.0 mg/dL (70-99); POTASSIUM,K 3.9 mEq/L (3.5-5.1); PROTEIN TOTAL,TP 8.1 g/dl (6.4-8.2); SODIUM,NA 145.0 mEq/L (136-145)
[2025-02-16 23:57] LABS: APPEARANCE,URINE CLOUDY (Clear); GLUCOSE,URINE NEGATIVE (Negative); OCCULT BLOOD,URINE 2+ (Negative)
[2025-02-17 00:18] LABS: EPITHELIAL CELLS,URINE 0-5 /hpf (0-5)
[2025-02-17] MEDS: cefTRIAXone 2 GM in Water For Injection, Sterile 20 ML IVPUSH ONE (00:37)
[2025-02-17] MEDS: Ketorolac 30 MG/ML SDV IVPUSH ONE (05:30)
[2025-02-17 13:12] VITALS: BP 152/98; PULSE 75
[2025-02-17] MEDS: Ketorolac 15 MG/ML SDV IVPUSH ONE (13:41)
== END 2025-02-17 14:45 ==
LOC: JD.ED 22:09
DX: N13.2 Hydronephrosis with renal and ureteral calculous obstruction (principal); N12 Tubulo-interstitial nephritis, not specified as acute or chronic; I10 Essential (primary) hypertension; E78.00 Pure hypercholesterolemia, unspecified; K21.9 Gastro-esophageal reflux disease without esophagitis; E66.9 Obesity, unspecified; Z79.899 Other long term (current) drug therapy; Z68.34 Body mass index [BMI] 34.0-34.9, adult
CPT/HCPCS: 36415; 74177; 80053; 81001; 83690; 85025; 87086; 87088; 87186; 96361; 96374; 96375; 96376; 99285; A4216; A9270; J0696; J1885; J2405; J7030; Q9967; J1171